=== PATIENT | female | born 1945 | race Caucasian/White ===

== ENCOUNTER 2017-01-31 05:24 | Inpatient (IN) | payer OTHER ==
[2017-01-21 08:40] LABS: HEMATOCRIT 43.2 % (37.0-47.0); HEMOGLOBIN 14.4 gm/dL (12.0-15.0); MCH 29.8 pg (26.0-34.0); MCHC 33.3 g/dL (28.0-37.0); MCV 89.4 fL (80.0-100.0); RBC 4.83 mil/uL (4.20-5.00); RDW 13.4 % (10.5-14.5); WBC 4.8 thou/uL (4.0-11.0)
[2017-01-21 08:49] LABS: ALBUMIN 3.7 g/dL (3.4-5.0); CALCIUM 8.7 mg/dL (8.5-10.1); CREATININE 0.9 mg/dL (0.6-1.0); POTASSIUM 3.7 mmol/L (3.5-5.1)
[2017-01-21 08:53] LABS: INR 3.9; PROTIME 40.9 Seconds (9.3-11.4)
[2017-01-21 08:59] LABS: URINE BILIRUBIN NEGATIVE (Negative); URINE BLOOD TRACE (Negative); URINE COLOR YELLOW; URINE GLUCOSE-RANDOM* NEGATIVE (Negative); URINE KETONES NEGATIVE (Negative); URINE LEUKOCYTES-REFLEX NEGATIVE (Negative); URINE PROTEIN (DIPSTICK) 1+ (Negative); URINE UROBILINOGEN 0.2 E.U./dl (0.2-1.0)
[2017-01-21 09:18] LABS: CASTS None Seen /LPF (None Seen); CRYSTALS None Seen /LPF (None Seen); SQUAMOUS 4-10 Moderate /LPF (0-3); URINE RBC None Seen /HPF (0-2); URINE WBC-REFLEX 6-15 Few /HPF (0-5)
[~2017-01-31] VITALS: Ht 172.7 cm; Wt 113.4 kg
[2017-01-31] VITALS (9 sets, daily range): BP systolic 132–174; BP diastolic 72–123
--- NOTE | ~2017-01-31 | O ---
[facility] [place] [address] OPERATIVE REPORT Name: KERLINE MANNING Room #: 537-P [facility] IN M.R.#: [id number] Admission: 01/31/17 Attend Phys: Claude Galvin MD Discharge: 02/02/17 Date of : 49 Report #: [id number] THIS REPORT FOR: //name// CC: Chong Galvin DATE OF SERVICE: 01/31/2017 PREOPERATIVE DIAGNOSES: 1. Left knee osteoarthritis. 2. Morbid obesity with body mass index of 40. POSTOPERATIVE DIAGNOSES: 1. Left knee osteoarthritis. 2. Morbid obesity with body mass index of 40. PROCEDURE: Left total knee arthroplasty. SURGEON: Claude Galvin MD. MOLD SHOP SUPERVISOR: Margaret Santillan PA-C. ANESTHESIA: LMA with an adductor canal block. IMPLANTS: We used [employer] and Nephew size 6 Legion cobalt chrome femur, size 5 tibia, size 9 polyethylene, and size 32 patella. TOURNIQUET TIME: 57 minutes. ESTIMATED BLOOD LOSS: 50 mL. COMPLICATIONS: None. SPECIMENS: None. CONDITION UPON LEAVING THE OPERATING ROOM: Stable. INDICATIONS FOR PROCEDURE: The patient is a 71-year-old female with severe left knee osteoarthritis. She had failed conservative treatment for this, and after discussion with her, she elected for left total knee arthroplasty. DESCRIPTION OF PROCEDURE: Risks, benefits, alternatives, and complications were discussed in detail with the patient including but not limited to risk of anesthesia, risk of damage to nerves, arteries, blood vessels, risk for infection, bleeding, risk for continued knee pain, and need for reoperation. An informed consent was obtained from the patient. Left knee was appropriately [facility] [address] [place] [address] OPERATIVE REPORT Name: KERLINE MANNING Room #: 537-P DIS IN M.R.#: [id number] Admission: 01/31/17 Attend Phys: Claude Galvin MD Discharge: 02/02/17 Date of : 49 Report #: [id number] marked in the preoperative holding area. An adductor canal block was placed by Anesthesia. IV Ancef was given for preoperative antibiotics. She was brought to the operating room and placed in the supine position on the operating room table. LMA anesthesia was induced without complication. Tourniquet was placed on the left thigh. Left lower extremity was prepped and draped in the normal sterile fashion. Timeout was performed, properly identifying the patient and procedure, as well as the instrumentation and implants. All in the operating room were in agreement. Left lower extremity was exsanguinated, tourniquet was inflated. Tourniquet time was 57 minutes. Standard midline approach to the knee was made with #10 blade through the skin. The dissection was taken down sharply to the fascia, and deep flaps were developed medially and laterally. Fresh #10 blade was used to make a medial parapatellar arthrotomy, and the knee was inspected. There was extensive tricompartmental osteoarthritic changes. Patella was everted. Anterior horns of the meniscus were removed sharply. ACL and PCL were removed sharply. Drill was used to gain access to the canal of the femur, and distal femoral cutting block was pinned in place. Distal femoral cut was made. Femur was sized, found to be of size 6. The size 6, 4-in-1 cutting block was placed. Anterior, posterior, and chamfer cuts were made. Attention was then turned to the tibia. Knee was hyperflexed. Tibia was subluxed anteriorly. Drill was used to gain access to the canal of the tibia, and tibial resection was based off the lateral plateau. Tibial resection was made. Posterior osteophytes were removed from the femur. The flexion and extension gaps were checked, and found to have good balance in flexion and extension, both medially and laterally. The tibia was sized, found to be of size 5. Size 5 tibial trial was placed, size 6 femoral trial was placed, and the box cut was made. Post for the trial was placed, and a size 9 polyethylene was placed. Knee was taken through range of motion, found to be stable, found to have good balance in flexion and extension, both medially and laterally. Nine mm was taken off the posterior surface of the patella and size 32 patellar button was placed. Knee was taken through range of motion, found to be stable, found to have good patellar tracking. After this, trial components were removed. Bony ends were thoroughly irrigated with normal saline. Final size 5 tibia, size 6 Legion cobalt chrome femur and a size 32 patella were cemented into place using standard cementation techniques. After the cement cured, the tourniquet was deflated. Hemostasis was obtained with Bovie cautery. A final size 9 polyethylene was placed. Periarticular injection consisting of morphine, ropivacaine, Toradol, and epinephrine was placed around the knee joint. The fascia was closed with 0 Vicryl. Skin was closed with 2-0 Vicryl, 3-0 Monocryl, Dermabond, and Aquacel. The patient tolerated this procedure well and went to the recovery room under the care of Anesthesia postoperatively. <ELECTRONICALLY SIGNED> By: Claude Galvin MD 02/08/17 0802 [id number] 1638 Claude Galvin MD /nt
--- NOTE | ~2017-01-31 | O ---
[facility] [place] [address] OPERATIVE REPORT Name: KERLINE MANNING Room #: 537-P [facility] IN M.R.#: [id number] Admission: 01/31/17 Attend Phys: Claude Galvin MD Discharge: 02/02/17 Date of : 49 Report #: [id number] THIS REPORT FOR: //name// CC: Chong Galvin PREOPERATIVE DIAGNOSES: 1. Left knee osteoarthritis. 2. Morbid obesity with BMI of 40. PROCEDURE: Left total knee arthroplasty. SURGEON: Claude Galvin M.D. STONE ROUGHER: Margaret Santillan PA-C. ANESTHESIA: LMA with adductor canal block. IMPLANTS: Bright and Nephew size 6 Legion, posterior stabilized cobalt chrome femur, size 5 tibia, size 9 polyethylene, and size 32 patella. TOURNIQUET TIME: 57 minutes. ESTIMATED BLOOD LOSS: 50 mL. COMPLICATIONS: None. SPECIMENS: None. CONDITION UPON LEAVING THE OPERATING ROOM: Stable. INDICATIONS FOR PROCEDURE: The patient is a ____ female with severe left knee osteoarthritis. She had failed conservative treatment for this and after discussion with her, she elected for a left total knee arthroplasty. DESCRIPTION OF PROCEDURE: Risks, benefits, alternatives, complications were discussed in detail with the patient including but not limited to risk of anesthesia, risk of damage to nerves, arteries, blood vessels, risk for infection, bleeding, risk for continued knee pain and need for reoperation. Informed consent was obtained. The patient's left knee was appropriately marked in the preoperative holding area. Adductor canal block was placed by anesthesia. IV Ancef was given for preoperative antibiotics. She was brought to the operating room and placed in supine position on operating room table. LMA anesthesia was used without complication. Tourniquet was placed on the left thigh. Left lower extremity was prepped and draped in normal sterile fashion. Timeout was performed properly identifying the patient and procedure as well as the instrumentation and implants. All in the operating room were in agreement. [address] [address] OPERATIVE REPORT Name: KERLINE MANNING Room #: 537-P [facility] IN .R.#: [id number] Admission: 01/31/17 Attend Phys: Claude Galvin MD Discharge: 02/02/17 Date of : 49 Report #: [id number] Left lower extremity was exsanguinated, tourniquet was inflated. Tourniquet time was 57 minutes. Standard midline approach to the knee was made with 10-blade through the skin. Dissection was taken down to the fascia and deep flaps were developed medially and laterally. Fresh 10-blade was used to make a medial parapatellar arthrotomy and the knee was inspected. There was extensive osteoarthritic change of the knee. Anterior horns of the meniscus were removed sharply. Deep retractors were placed. Knee was flexed. ACL and PCL were removed sharply. Drill was used to gain access to the canal of the femur and distal femoral cutting block was pinned in place. Distal femoral cut was made. The femur was sized and found to be a size 6. The size 6, 4-in-1 cutting block was placed. Anterior, posterior and chamfer cuts were made. After this, the knee was hyperflexed and the tibial resection was made based on intramedullary alignment. After this, posterior osteophytes were removed from the femur. Flexion and extension gap was checked, found to be equal in flexion and extension both medially and laterally. Tibia was sized, found to be a size 4. A size 4 tibial trial was placed, a size 6 femoral trial was placed and the box cut was made. A post was placed and a size 9 polyethylene was placed. Knee was taken through range of motion, found to be stable, found to and have good balance in flexion and extension, both medially and laterally. 9 mm was taken off the posterior surface of the patella and a size 35 patellar trial button was placed. Knee was taken through range of motion, found to be stable, found to have good patellar tracking. After this, trial components were removed. All bony ends were thoroughly irrigated with normal saline. Final size 4 tibia, size 6 femur, size 35 patella were cemented in place using standard cementation techniques. After cement cured, tourniquet was deflated. Hemostasis was obtained with Bovie cautery. A final size 9 polyethylene was placed. Periarticular injection consisting of ropivacaine, morphine, epinephrine and Toradol was placed around the knee joint. The fascia was closed with 0 Vicryl, skin was closed with 2-0 Vicryl and 3-0 Monocryl. Dermabond and Aquacel were applied. The patient tolerated this procedure well and went to recovery room under care of anesthesia postoperatively. By: [id number] Claude Galvin MD /ruth ann
--- NOTE | ~2017-01-31 | H ---
[facility] [address] [place] [address] HISTORY AND PHYSICAL Name: KERLINE MANNING Room #: 537-P [facility] IN M.R.#: [id number] Admission: 01/31/17 Attend Phys: Claude Galvin MD Discharge: 02/02/17 Date of : 49 Report #: [id number] THIS REPORT FOR: //name// For History and Physical, please see office documentation/handwritten note in the patient's medical record. By: 0857 Claude Galvin MD /jr
[~2017-01-31 05:24] MED LIST: ASPIRIN325 PO; ATENOLOL 50MG T50 M1 PO; CIPRO500 MG PO; COUMADIN 5 MG TA5 M1 PO; FLAGYL 250 MG250 MG PO; FLONASE16 GM NASAL; FLORINEF ACETA0.1 MG PO; K-TAB ER20 MEQ PO; LIPITOR 20 MG T20 M1 PO; LISINOPRIL5 MG PO; LOPRESSOR50 PO; LOVASTAT20 PO; MIDODRINE HCL2.5 M1 PO; NEURONTIN 300300 M1 PO; OMEPRAZOLE 20 M20 M1 PO; POTASSIUM20 PO; TYLENOL325 MG PO; VITAMIN D1000 UNI1 PO
[2017-01-31 07:48] LABS: INR 1.1; PROTIME 11.8 Seconds (9.3-11.4)
[2017-02-01 05:04] VITALS: BP 154/69
[2017-02-01 05:31] LABS: HEMOGLOBIN 12.4 gm/dL (12.0-15.0); MCH 30.5 pg (26.0-34.0); MCHC 33.6 g/dL (28.0-37.0); MCV 90.7 fL (80.0-100.0); RBC 4.08 mil/uL (4.20-5.00); RDW 13.4 % (10.5-14.5); WBC 8.3 thou/uL (4.0-11.0)
[2017-02-01 07:59] VITALS: BP 140/75
[2017-02-01 15:01] VITALS: BP 140/75
[2017-02-01 15:50] VITALS: BP 127/65
[2017-02-01 19:14] VITALS: BP 149/78
[2017-02-01 20:30] VITALS: BP 149/78
[2017-02-02 05:10] VITALS: BP 138/75
[2017-02-02 07:20] VITALS: BP 159/90
[2017-02-02 08:09] LABS: HEMATOCRIT 36.6 % (37.0-47.0); HEMOGLOBIN 12.2 gm/dL (12.0-15.0); MCH 30.5 pg (26.0-34.0); MCHC 33.4 g/dL (28.0-37.0); MCV 91.2 fL (80.0-100.0); RBC 4.01 mil/uL (4.20-5.00); RDW 13.5 % (10.5-14.5); WBC 8.1 thou/uL (4.0-11.0)
[2017-02-02 08:30] LABS: INR 1.2; PROTIME 12.2 Seconds (9.3-11.4)
[2017-02-02] MEDS ORDERED: MS CONTIN15 MG PO (13:49)
[2017-02-02] MEDS ORDERED: PERCOCET PO (13:50)
[2017-02-02 14:07] VITALS: BP 140/75
[2017-02-02 18:00] VITALS: BP 140/75
== END 2017-02-02 14:58 | disposition home or self-care (01) | DRG 470 ==
LOC: 5S 05:24 → TBA 05:24 → PRE 05:32 → 5S 10:36 → PRE 15:23 → 5S 02-02 14:58
PROVIDERS: Orthopaedic Surgery
PROC: 0SRD0JZ Replacement of Left Knee Joint with Synthetic Substitute, Open Approach (ICD-10-PCS; principal; 2017-01-31)
DX: M17.12 Unilateral primary osteoarthritis, left knee (principal); E66.01 Morbid (severe) obesity due to excess calories; Z68.38 Body mass index [BMI] 38.0-38.9, adult
CPT/HCPCS: 10785; 50010; 50101; 50415; 50954; 51130; 51225; 51771; 52256; 53000; 53078; 53364; 54118; 56527; 56528; 57095; 62110; 62900; 64042; 64043; 70005

== ENCOUNTER → 2017-10-04 | Outpatient (CLI) | payer OTHER ==
[~2017-10-04] MED LIST changes: +COLACE100 MG PO; +LOVASTATIN 20 M20 MG PO; +MIRALAX17 GM PO; +MS CONTIN15 MG PO; +NORCO 5-325 TA1 EACH PO; +PERCOCET PO
--- NOTE | ~2017-10-04 | 2DMMODE ---
[facility] [place] [address] 2 D/M-MODE ECHOCARDIOGRAM Name: KERLINE MANNING Room #: [facility]#: [id number] Admission: 10/04/17 Attend Phys: Wilton Hatfield Discharge: Date of : 49 Date of Service: 10/04/17 1018 Report #: [id number] THIS REPORT FOR: //name// APPROVED REPORT Study performed: 10/04/2017 09:20:07 EXAM: Comprehensive 2D, Doppler, and color-flow Echocardiogram Patient Location: Out-Patient Status: routine BSA: 2.19 HR: 96 bpm BP: 146/110 mmHg Rhythm: Atrial Fibrillation Other Information Study Quality: Adequate Technically limited study due to body habitus and breast implant. Indications Afib, pre-op pacemaker, ablation. 2D Dimensions RVDd: 34.28 mm LVEF(%): 42.52 (>50%) IVSd: 13.82 (7-11mm) LVOT Diam: 21.41 (18-24mm) LVDd: 47.53 mm PWd: 13.39 (7-11mm) Ascending Ao: 32.92 (22-36mm) LVDs: 37.60 (25-40mm) Aortic Root: 33.83 mm Escalante's LVEF: 42.52 % Volumes Left Atrial Volume (Systole) Single Plane 4CH: 85.19 mL Single Plane 2CH: 95.25 mL LA ESV Index: 43.00 mL/m2 Aortic Valve AoV Peak Ankur.: 1.27 m/s AO Peak Gr.: 6.54 mmHg LVOT Max P.01 mmHg LVOT Max V: 0.86 m/s JUN Vmax: 2.42 cm2 Mitral Valve [facility] [place] [address] 2 D/M-MODE ECHOCARDIOGRAM Name: KERLINE MANNING Room #: [facility]#: [id number] Admission: 10/04/17 Attend Phys: Wilton Hatfield Discharge: Date of : 49 Date of Service: 10/04/17 1018 Report #: [id number] MV Decel. Time: 120.91 ms MV E Max Ankur.: 0.90 m/s Pulmonary Valve PV Peak Ankur.: 0.75 m/s PV Peak Gr.: 2.30 mmHg Tricuspid Valve TR Peak Ankur.: 2.41 m/s RAP Estimate: 5.00 mmHg TR Peak Gr.: 23.26 mmHg PA Pressure: 28.00 mmHg Left Ventricle The left ventricle is normal size. Mild concentric left ventricular hypertrophy. Left ventricular systolic function is mildly decreased. LVEF is 45%-50%. This study is not technically sufficient to allow evaluation of the LV diastolic function due to atrial fibrillation. Right Ventricle The right ventricle is normal size. The right ventricular systolic function is normal. Atria Left atrium is moderately dilated. The right atrium size is normal. Aortic Valve Aortic valve is mildly calcified. Trace aortic regurgitation. There is no aortic valvular stenosis. Mitral Valve The mitral valve is normal in structure. Mild mitral annular calcification. Mild to moderate mitral regurgitation. No evidence of mitral valve stenosis. Tricuspid Valve The tricuspid valve is normal in structure. Mild tricuspid regurgitation. Estimated PAP is 25-30mmHg. Pulmonic Valve The pulmonary valve is normal in structure. Trace pulmonic regurgitation. Great Vessels The aortic root is normal in size. The ascending aorta is normal in size. IVC is normal in size and collapses >50% with [facility] [address] [place] [address] 2 D/M-MODE ECHOCARDIOGRAM Name: KERLINE MANNING Room #: [facility]#: [id number] Admission: 10/04/17 [facility]end [facility]: [facility] Discharge: Date of : 49 Date of Service: 10/04/17 1018 Report #: [id number] inspiration. Pericardium There is no pericardial effusion. <Conclusion> The left ventricle is normal size. LVEF is 45%-50%. Left atrium is moderately dilated. Aortic valve is mildly calcified. Trace aortic regurgitation. The mitral valve is normal in structure. Mild mitral annular calcification. Mild to moderate mitral regurgitation. The tricuspid valve is normal in structure. Mild tricuspid regurgitation. Estimated PAP is 25-30mmHg. The pulmonary valve is normal in structure. Trace pulmonic regurgitation. There is no pericardial effusion. <ELECTRONICALLY SIGNED> By: Omar Chakraborty MD 10/04/17 1018 1018 1018 Omar Chakraborty MD /INF
== END ==
LOC: CV 08:33
DX: Z01.818 Encounter for other preprocedural examination (principal); I08.1 Rheumatic disorders of both mitral and tricuspid valves; I48.91 Unspecified atrial fibrillation

== ENCOUNTER 2017-10-07 09:30 | Observation (INO) | payer OTHER ==
[~2017-10-07] VITALS: Ht 172.7 cm; Wt 107.0 kg
--- NOTE | ~2017-10-07 | D ---
[facility] [place] [address] DISCHARGE SUMMARY Name: KERLINE MANNING Room #: 218-P [facility] Mati Rios#: [id number] Admission: 10/07/17 Attend Phys: Wilton Hatfield MD Discharge: 10/08/17 Date of : 49 Report #: [id number] THIS REPORT FOR: //name// CC: Pancho Hatfield DISCHARGE DIAGNOSES: 1. Permanent atrial fibrillation. 2. Atrial fibrillation with rapid ventricular response. 3. Orthostatic hypotension. 4. INTOLERANCE OF BETA RHINA THERAPY. 5. Nonischemic cardiomyopathy, EF of 45%. PROCEDURES PERFORMED: Bi-V pacemaker insertion. HISTORY: The patient is a 72-year-old female with a history of permanent atrial fibrillation, orthostatic hypotension and intolerance of blood pressure medications. Because of this, she has been in atrial fibrillation with rapid ventricular response for years. She has fatigue and shortness of breath, but when she takes a beta-rhina, she will have recurrent syncopal episodes. She had an echocardiogram performed prior to the procedure today, which showed her EF is 45%. She is here for Bi-V pacemaker insertion with plans of undergoing AV node ablation at a future date. The patient underwent successful Bi-V pacemaker insertion. The procedure was straightforward and coronary sinus access was without any issues. She had 1 posterior lateral branch coming off the coronary sinus. I was able to place a quadripolar lead into this. The more distal pacing vectors demonstrated phrenic nerve capture and the more proximal pacing vectors had higher thresholds. However, due to the limited anatomy, the lead was left at this position. HOSPITAL COURSE: The patient was monitored in the hospital overnight. She did well. She denied any chest pain or shortness of breath. On physical exam, her heart was tachycardic and irregular. Her lungs were clear to auscultation bilaterally and extremities with no clubbing, cyanosis, edema. Her incision was healed nicely with no signs of hematoma and there was some mild redness around the incision site. A chest x-ray was performed and showed no evidence of pneumothorax and stable lead position. Device interrogation revealed stable pacing thresholds and we decided to pace from the 2 middle poles on the quadripolar lead, which had a threshold of 3 volts at 1.5 milliseconds. Discharge instructions were reviewed with the patient and she was instructed to follow up in 7-10 days for site check. At that time if she is doing well, we [address] [address] DISCHARGE SUMMARY Name: KERLINE MANNING Room #: 218-P DIS Mati Rios#: [id number] Admission: 10/07/17 Attend Phys: Wilton Hatfield MD Discharge: 10/08/17 Date of : 49 Report #: [id number] will schedule her for the AV node ablation. She will continue on her same home medications and her warfarin was resumed last night. <ELECTRONICALLY SIGNED> By: Wilton Hatfield MD 10/08/17 1525 0853 0907 Wilton Hatfield MD /nt
--- NOTE | ~2017-10-07 | P ---
[facility] [place] [address] PROCEDURE REPORT Name: KERLINE MANNING Room #: 218-P [facility] Gabriel#: [id number] Admission: 10/07/17 Attend Phys: Wilton Hatfield MD Discharge: 10/08/17 Date of : 49 Report #: [id number] THIS REPORT FOR: //name// CC: Pancho Hatfield DATE OF SERVICE: 10/07/2017 PREOPERATIVE DIAGNOSIS: Permanent atrial fibrillation. HISTORY: The patient is a 72-year-old female with a history of permanent atrial fibrillation, recurrent syncope due to orthostatic hypotension and intolerance of beta blockers and rate control medications, who is here for pacemaker implantation. Her echo shows an EF of 45-50%. Given her upcoming AV node ablation that will result in 100% RV pacing, I recommended Bi-V pacemaker insertion. ANESTHESIA: The patient underwent MAC anesthesia with no anesthesia related complications. DESCRIPTION OF PROCEDURE: The patient underwent informed consent. We discussed the details of the procedure including the risks, which included but not limited to bleeding, infection, vascular damage, cardiac perforation, pneumothorax. She understood these risks and is willing to proceed. As such, she was brought to the EP laboratory in fasting and unsedated state and prepped and draped in the sterile fashion. She received IV antibiotics prior to initiation of the procedure. She underwent a venogram showing patency of left axillary vein. Next, I injected lidocaine below the level of left clavicle. Incision was made and a pocket was created over the prepectoral fascia and access was obtained twice to left axillary vein using the extrathoracic approach, which she is positioned using the modified Seldinger technique. Next, a lead was positioned in the right ventricular apex with adequate pacing and sensing thresholds. Next, a coronary sinus guide sheath was advanced easily into the coronary sinus. A venogram of the coronary sinus was performed and showed that there was a posterolateral branch. I was able to easily position a quadripolar lead into this vessel. The coronary sinus branch was short and I was able to advance the lead all the way to the apical segment of this vessel and the distal tip of the lead actually started wrapping back towards the base. The most apical pacing site demonstrated phrenic nerve capture. The more proximal pacing sites had higher thresholds but with no phrenic nerve capture. As such, this sheath was split. The lead remained in position and then both leads were sutured to the prepectoral fascia using Ethibond suture. The leads were tested and found to be functioning normally. After the device was connected to the leads, the pocket was irrigated with vancomycin and then the pocket was closed in 3 layers using 2-0 for the deep layer, 3-0 for the mid layer and 4-0 for the subcuticular [address] [address] PROCEDURE REPORT Name: KERLINE MANNING Yunior Room #: 218-P [facility] Rios#: [id number] Admission: 10/07/17 Attend Phys: Wilton Hatfield MD Discharge: 10/08/17 Date of : 49 Report #: [id number] layer. The implanted pacemaker was a [employer] model #NL0965, serial #[id number]. The RV lead was a [employer] model #2088TC, 58 cm, serial #[id number] with a R-wave of 6.5 millivolts, pacing impedance of 550 ohms and the pacing threshold 0.5 volts at 0.5 milliseconds. The LV lead was a [employer] model #1458Q, 86 cm, serial #[id number]. This lead demonstrated a pacing impedance of 1025 ohms and pacing threshold 1.8 volts at 1 millisecond in the M3-P4 pacing configuration. The device was programmed to the VVI 40 mode. The plan will be to perform an AV node ablation at a future date. CONCLUSIONS: 1. Successful BiV pacemaker implantation. 2. Satisfactory right ventricular and left ventricular pacing and sensing thresholds. 3. AV node ablation to be performed at a future date once she is healed from the pacemaker implantation. <ELECTRONICALLY SIGNED> By: Wilton Hatfield MD 10/08/17 1525 1620 2108 Wilton Hatfield MD /nt
[~2017-10-07 09:30] MED LIST changes: -COLACE100 MG PO; -LOVASTATIN 20 M20 MG PO; -MIRALAX17 GM PO; -NORCO 5-325 TA1 EACH PO
[2017-10-07 09:48] VITALS: BP 154/102
[2017-10-07] MEDS ORDERED: NEURONTIN 300300 M1 PO (10:03)
[2017-10-07] MEDS ORDERED: LOVASTATIN 20 M20 MG PO (10:08)
[2017-10-07 10:26] LABS: ABSOLUTE NEUTROPHILS 3.8 thou/uL (1.4-8.2); BASOPHILS 0.3 % (0.0-2.0); HEMATOCRIT 44.2 % (37.0-47.0); HEMOGLOBIN 14.6 gm/dL (12.0-15.0); LYMPHOCYTES 17.4 % (24.0-44.0); MCH 30.1 pg (26.0-34.0); MCHC 32.9 g/dL (28.0-37.0); MCV 91.6 fL (80.0-100.0); MONOCYTES 9.3 % (1.0-8.0); PLATELET COUNT 188 thou/uL (150-400); RBC 4.83 mil/uL (4.20-5.00); WBC 5.3 thou/uL (4.0-11.0)
[2017-10-07 10:33] LABS: CALCIUM 8.7 mg/dL (8.5-10.1); POTASSIUM 3.5 mmol/L (3.5-5.1)
[2017-10-07 10:39] LABS: ALBUMIN 3.5 g/dL (3.4-5.0); INR 1.2; PROTIME 11.9 Seconds (9.3-11.4); TOTAL BILIRUBIN 0.3 mg/dL (<0.1-1.0); TOTAL PROTEIN 6.7 g/dL (6.4-8.2)
[2017-10-07 13:40] VITALS: BP 153/95
[2017-10-07 16:00] VITALS: BP 146/82
[2017-10-07 20:13] VITALS: BP 133/101
[2017-10-07 20:50] VITALS: BP 146/96
[2017-10-08 00:13] VITALS: BP 125/68
[2017-10-08 03:57] VITALS: BP 154/98
[2017-10-08 08:38] VITALS: BP 150/100
[2017-10-08 09:11] VITALS: BP 150/100
== END 2017-10-08 10:45 | disposition home or self-care (01) ==
LOC: CATH 09:30 → 2N 13:46 → ENTRNSPT 10-08 10:34 → EDTRNSPTSTS 10-08 10:38 → 2N 10-08 10:45
PROVIDERS: Internal Medicine Cardiovascular Disease
DX: I48.91 Unspecified atrial fibrillation (principal); I42.8 Other cardiomyopathies; I95.1 Orthostatic hypotension
CPT/HCPCS: 62110; 62900; 70005

== ENCOUNTER 2017-10-16 06:34 | Observation (INO) | payer OTHER ==
[~2017-10-16] VITALS: Ht 172.7 cm; Wt 112.4 kg
--- NOTE | ~2017-10-16 | P ---
[facility] [place] [address] PROCEDURE REPORT Name: KERRIKERLINE HESS Room #: 205-P [facility] Mati Rios#: [id number] Admission: 10/16/17 Attend Phys: Wilton Hatfield MD Discharge: 10/17/17 Date of : 49 Report #: [id number] THIS REPORT FOR: //name// CC: Pancho Hatfield PROCEDURE PERFORMED: AV moe ablation. PREOPERATIVE DIAGNOSIS: Permanent atrial fibrillation. POSTOPERATIVE DIAGNOSIS: Permanent atrial fibrillation. HISTORY OF PRESENT ILLNESS: The patient is a lady with history of permanent AFib and intolerance to AV moe blocking agents. She has recently undergone a biventricular pacemaker implantation with a [employer] utility lineworker. She is here for her AV node ablation. PROCEDURE: The patient was brought to the EP laboratory in a fasting and sedated state and prepped and draped in a sterile fashion. Her pacemaker was interrogated and found to be functioning normally and was programmed to the VVI 40 mode. Next, I obtained access to the right femoral vein times 1 and placed a sheath using the modified Seldinger technique. I then upsized to an SR0 sheath and then 8-mm ablation catheter. I then attempted to perform ablation of the AV node from standard location. I could not find His signal. I performed ablation throughout this region, but was unable to obtain heart block. Therefore, I obtained access to the right femoral artery time 1 placing a short sheath and then took my 8-mm ablation catheter retrograde into the left ventricular outflow tract. I was able to localize the His at this location. I then performed ablation of the His from this position. I left the patient with a ventricular escape rhythm at 30 beats per minute. Prior to going retrograde, I did give the patient IV heparin. We monitored for a period of 30 minutes and there was no return of conduction. The pacemaker was reinterrogated and set to VVIR 90. The patient received systemic protamine and once the ACT was within acceptable range, catheters and sheaths were pulled. Hemostasis was obtained. There were no complications and no significant bleeding. CONCLUSIONS: 1. Successful AV node ablation via retroaortic approach. 2. Successful pacemaker reprogramming. <ELECTRONICALLY SIGNED> By: Wilton Hatfield MD 11/22/17 1752 1041 1317 Wilton Hatfield MD /nt
--- NOTE | ~2017-10-16 | EKG ---
[address] [address] ELECTROCARDIOGRAM REPORT Name: KERLINE MANNING Room #: [facility]#: [id number] Admission: 10/16/17 Attend Phys: Wilton Hatfield MD Discharge: 10/17/17 Date of : 49 Report #: [id number] THIS REPORT FOR: //name// [facility] Test Date: 2017-10-17 Test Time: 08:41:14 Pat Name: KERLINE MANNING Department: Room: [facility] Gender: F Systems Mechanic: Darren MOEYR : 1945 Requested By: Wilton Hatfield Order Number: [id number] MD: Pancho Soni Measurements Intervals [place] Rate: 90 P: [place]: QRS: -62 QRSD: 157 T: -71 QT: 417 QTc: 511 Interpretive Statements Afib/flutter and ventricular-paced rhythm No further analysis attempted due to paced rhythm Compared to ECG 12/28/2013 13:48:58 Ventricular pacing is now present Electronically Signed On 10-17-2017 16:57:11 GROUP PROGRAM MANAGER by Pancho Soni [email or web address] <ELECTRONICALLY SIGNED> By: Pancho Soni MD, [facility] 10/17/17 1657 [id number] Pancho Soni MD, [facility] /EPI
--- NOTE | ~2017-10-16 | D ---
[facility] [place] [address] [address] DISCHARGE SUMMARY Name: KERLINE MANNING Room #: 205-P [facility] Mati Rios#: [id number] Admission: 10/16/17 Attend Phys: Wilton Hatfield MD Discharge: 10/17/17 Date of : 49 Report #: [id number] THIS REPORT FOR: //name// CC: Pancho Hatfield DISCHARGE DIAGNOSIS: Atrial fibrillation. PROCEDURES PERFORMED: AV node ablation. HISTORY OF PRESENT ILLNESS: The patient is a 72-year-old with history of AFib and rapid ventricular response who is intolerant of AV moe blocking agents due to syncope. Last week, she underwent a Bi-V pacemaker insertion. She was seen in clinic and device is functioning normally and her incision site was healing well. She came in yesterday for an elective AV node ablation. Initially, I tried to ablate this from the right side, but this was unsuccessful. I therefore obtained arterial access and performed AV node ablation from a retroaortic position and this was successful. There were no complications. HOSPITAL COURSE: The patient was monitored overnight. She did well without any significant issues. Following day, she was feeling well. She denies any chest pain, shortness of breath, fevers or chills. Her right groin showed no evidence of hematoma and there was some mild ecchymosis noted. Telemetry revealed a ventricular paced rhythm with atrial fibrillation. As such, she was deemed stable for discharge home with instructions to follow up in 1 month. She will continue with her current medical regimen. <ELECTRONICALLY SIGNED> By: Wilton Hatfield MD 11/22/17 1753 0831 Wilton Hatfield MD /nt
[~2017-10-16 06:34] MED LIST changes: +LOVASTATIN 20 M20 MG PO
[2017-10-16 06:59] VITALS: BP 146/106
[2017-10-16 07:05] LABS: ABSOLUTE NEUTROPHILS 5.4 thou/uL (1.4-8.2); BASOPHILS 0.4 % (0.0-2.0); EOSINOPHILS 1.9 % (0.0-3.0); HEMATOCRIT 45.3 % (37.0-47.0); LYMPHOCYTES 14.5 % (24.0-44.0); MCH 30.1 pg (26.0-34.0); MCHC 33.1 g/dL (28.0-37.0); MONOCYTES 5.3 % (1.0-8.0); PLATELET COUNT 184 thou/uL (150-400); POLYS 77.9 % (36.0-66.0); RBC 4.98 mil/uL (4.20-5.00); RDW 13.8 % (10.5-14.5)
[2017-10-16 07:11] LABS: CALCIUM 8.6 mg/dL (8.5-10.1); POTASSIUM 3.9 mmol/L (3.5-5.1)
[2017-10-16 07:17] LABS: ALBUMIN 3.5 g/dL (3.4-5.0); TOTAL BILIRUBIN 0.5 mg/dL (<0.1-1.0); TOTAL PROTEIN 6.9 g/dL (6.4-8.2)
[2017-10-16 07:19] LABS: APTT 27.9 Seconds (24.5-32.8); INR 1.2; PROTIME 12.1 Seconds (9.3-11.4)
[2017-10-16 12:25] VITALS: BP 140/95
[2017-10-16 15:14] VITALS: BP 136/86
[2017-10-16 20:12] VITALS: BP 117/73
[2017-10-16 23:20] VITALS: BP 130/73
[2017-10-17 04:45] VITALS: BP 146/93
[2017-10-17 09:02] VITALS: BP 146/93
== END 2017-10-17 10:32 | disposition home or self-care (01) ==
LOC: CATH 06:34 → 2N 12:14
PROVIDERS: Internal Medicine Cardiovascular Disease
DX: I48.2 Chronic atrial fibrillation (principal); I95.1 Orthostatic hypotension; G62.9 Polyneuropathy, unspecified; E78.5 Hyperlipidemia, unspecified; I42.9 Cardiomyopathy, unspecified; E66.9 Obesity, unspecified; Z85.3 Personal history of malignant neoplasm of breast; Z87.891 Personal history of nicotine dependence; Z86.73 Personal history of transient ischemic attack (TIA), and cerebral infarction without residual deficits; Z95.0 Presence of cardiac pacemaker; I10 Essential (primary) hypertension; Z68.37 Body mass index [BMI] 37.0-37.9, adult
CPT/HCPCS: 62110; 70005

== ENCOUNTER 2018-04-22 10:45 | Emergency (ER) | payer OTHER ==
[~2018-04-22] VITALS: Ht 172.7 cm; Wt 108.9 kg
[2018-04-22] MEDS ORDERED: COLACE100 MG PO (12:12)
[2018-04-22] MEDS ORDERED: MIRALAX17 GM PO (12:12)
[2018-04-22] MEDS ORDERED: NORCO 5-325 TA1 EACH PO (12:12)
== END 2018-04-22 13:00 | disposition home or self-care (01) ==
LOC: ER 10:45
DX: S42.212A Unspecified displaced fracture of surgical neck of left humerus, initial encounter for closed fracture (principal); K21.9 Gastro-esophageal reflux disease without esophagitis; I48.91 Unspecified atrial fibrillation; Z96.652 Presence of left artificial knee joint; Z90.49 Acquired absence of other specified parts of digestive tract; Z90.710 Acquired absence of both cervix and uterus; Z90.10 Acquired absence of unspecified breast and nipple; Z87.891 Personal history of nicotine dependence; W01.0XXA Fall on same level from slipping, tripping and stumbling without subsequent striking against object, initial encounter; Y93.89 Activity, other specified; Y92.89 Other specified places as the place of occurrence of the external cause; Y99.8 Other external cause status

== ENCOUNTER → 2020-04-20 | Outpatient (CLI) | payer OTHER ==
[~2020-04-20] MED LIST changes: +COLACE100 MG PO; +MIRALAX17 GM PO; +NORCO 5-325 TA1 EACH PO
== END ==
LOC: SJCVCIMAG 13:30
PROVIDERS: ATTEND Internal Medicine Cardiovascular Disease
DX: Z45.018 Encounter for adjustment and management of other part of cardiac pacemaker (principal); I08.1 Rheumatic disorders of both mitral and tricuspid valves; R94.31 Abnormal electrocardiogram [ECG] [EKG]; I95.1 Orthostatic hypotension; I48.0 Paroxysmal atrial fibrillation; I44.2 Atrioventricular block, complete; E78.5 Hyperlipidemia, unspecified; Z79.01 Long term (current) use of anticoagulants; Z79.899 Other long term (current) drug therapy; Z87.891 Personal history of nicotine dependence

== ENCOUNTER → 2021-04-20 | Outpatient (CLI) | payer OTHER | LOC: SJCVC 12:49 | PROVIDERS: ATTEND Internal Medicine Cardiovascular Disease | DX: I48.0 Paroxysmal atrial fibrillation (principal); I42.9 Cardiomyopathy, unspecified; I95.1 Orthostatic hypotension; D68.59 Other primary thrombophilia; I25.5 Ischemic cardiomyopathy; E78.5 Hyperlipidemia, unspecified; Z95.0 Presence of cardiac pacemaker; Z86.73 Personal history of transient ischemic attack (TIA), and cerebral infarction without residual deficits; Z79.899 Other long term (current) drug therapy; Z85.3 Personal history of malignant neoplasm of breast; Z87.891 Personal history of nicotine dependence; Z72.89 Other problems related to lifestyle ==

== ENCOUNTER → 2021-10-31 | Outpatient (CLI) | payer OTHER | LOC: SJCVCIMAG 08:15 | PROVIDERS: ATTEND Internal Medicine Cardiovascular Disease | DX: I08.3 Combined rheumatic disorders of mitral, aortic and tricuspid valves (principal); I48.0 Paroxysmal atrial fibrillation; E78.5 Hyperlipidemia, unspecified; I10 Essential (primary) hypertension; Z95.0 Presence of cardiac pacemaker; Z88.5 Allergy status to narcotic agent; Z88.8 Allergy status to other drugs, medicaments and biological substances; Z79.01 Long term (current) use of anticoagulants; Z79.899 Other long term (current) drug therapy; Z87.891 Personal history of nicotine dependence; Z72.89 Other problems related to lifestyle ==